=== PATIENT | female | born 1995 | race African-American/Black ===

== ENCOUNTER 2022-04-28 15:27 | Emergency (ER) | payer SELFPAY ==
[2022-04-28] MEDS ORDERED: Lidocaine 1% (PF) 30 ML VIAL ONE (16:26)
== END 2022-04-28 17:18 | disposition home or self-care (01) ==
LOC: CSHERS 15:27
DX: L02.411 Cutaneous abscess of right axilla (principal)
CPT/HCPCS: 10060; J2001

== ENCOUNTER 2022-08-11 15:14 | Emergency (ER) | payer SELFPAY | END 2022-08-11 16:20 | disposition home or self-care (01) | LOC: CSHERS 15:14 | DX: L98.9 Disorder of the skin and subcutaneous tissue, unspecified (principal) | CPT/HCPCS: 99283 ==

== ENCOUNTER 2022-10-21 15:03 | Emergency (ER) | payer SELFPAY | END 2022-10-21 19:45 | disposition home or self-care (01) | LOC: CSHERS 15:03 | DX: L02.411 Cutaneous abscess of right axilla (principal) | CPT/HCPCS: 99283 ==

== ENCOUNTER 2024-06-09 17:12 | Emergency (ER) | payer SELFPAY | END 2024-06-09 18:58 | disposition home or self-care (01) | LOC: CSHERS 17:12 | DX: M25.562 Pain in left knee (principal) | CPT/HCPCS: 99283 ==